=== PATIENT | female | born 1950 | race Caucasian/White ===

== ENCOUNTER 2019-07-09 14:43 | Outpatient (CLI) | payer OTHER, SELFPAY ==
[2019-07-09 15:31] LABS: Abs Immature Grans 0.03 k/cumm (0.0-0.09); Absolute Lymphocyte Count 0.88 k/cumm (1.2-3.4); Absolute Monocyte Count 1.21 k/cumm (0.11-0.7); HCT 39.2 % (36.0-46.0); HGB 12.7 g/dL (12.0-15.5); Immature Grans % 0.2 %; Lymphocytes % 7.2; Mean Corp. HGB Concentration 32.4 g/dL (32.0-36.0); Mean Corpuscular Hemoglobin 31.4 pg (27.0-33.0); Mean Platelet Volume 9.4 fL (8.0-11.0); Monocytes % 9.9; Neutrophils % 82.7; Platelet Count 264 x1000/uL (130-400); RBC 4.04 m/cumm (4.00-5.20); RBC Distribution Width 14.5 % (11.7-14.6); White Blood Cell Count 12.19 k/cumm (4.4-10.8)
[2019-07-09 15:34] LABS: Absolute Neutrophil Count 10.08 k/cumm (1.2-6.7)
[2019-07-09 15:52] LABS: ALT 21 U/L (14-59); AST 20 U/L (15-37); Albumin 3.6 g/dL (3.4-5.0); Alkaline Phosphatase 85 U/L (46-116); Anion Gap 6.3 mmol/L (3-11); BUN 32 mg/dL (7-18); Bilirubin, Total 0.3 mg/dL (0.2-1.0); CO2 27.7 mmol/L (21.0-32.0); Calcium 9.4 mg/dL (8.5-10.1); Chloride 107 mmol/L (98-107); Estimated GFR 54.81 (mL/min/1.73m2); Glucose 110 mg/dL (74-106); Potassium 4.7 mmol/L (3.5-5.1); Sodium 141 mmol/L (136-145); Total Protein 6.9 g/dL (6.4-8.2)
== END 2019-07-09 15:03 ==
PROVIDERS: PCP Registered Nurse; Visit Provider Internal Medicine
DX: C50.912 Malignant neoplasm of unspecified site of left female breast (principal); Z17.1 Estrogen receptor negative status [ER-]
CPT/HCPCS: 36415; 80053; 85025

== ENCOUNTER 2019-07-22 03:41 | Outpatient (RCR) | payer OTHER, SELFPAY ==
[2019-07-22 10:20] LABS: HCT 37.1 % (36.0-46.0); Mean Corp. HGB Concentration 32.3 g/dL (32.0-36.0); Mean Corpuscular Hemoglobin 31.7 pg (27.0-33.0); Mean Corpuscular Volume 97.9 fL (80-95); Mean Platelet Volume 9.4 fL (8.0-11.0); Platelet Count 389 x1000/uL (130-400); RBC 3.79 m/cumm (4.00-5.20); RBC Distribution Width 14.5 % (11.7-14.6); White Blood Cell Count 10.64 k/cumm (4.4-10.8)
[2019-07-22 10:45] LABS: Absolute Lymphocyte Count 1.17 k/cumm (1.2-3.4); Absolute Monocyte Count 1.38 k/cumm (0.11-0.7); Absolute Neutrophil Count 7.45 k/cumm (1.2-6.7); Diff Comment Manual Differential; RBC Morphology Normal
[2019-07-22 10:55] LABS: ALT 22 U/L (14-59); AST 14 U/L (15-37); Albumin 3.2 g/dL (3.4-5.0); Alkaline Phosphatase 109 U/L (46-116); Anion Gap 6.5 mmol/L (3-11); BUN 27 mg/dL (7-18); Bilirubin, Total 0.2 mg/dL (0.2-1.0); CO2 28.5 mmol/L (21.0-32.0); Chloride 107 mmol/L (98-107); Glucose 101 mg/dL (74-106); Potassium 4.3 mmol/L (3.5-5.1); Sodium 142 mmol/L (136-145); Total Protein 6.8 g/dL (6.4-8.2)
== END 2019-07-22 23:59 | disposition home or self-care (01) ==
LOC: INF 03:41
PROVIDERS: PCP Registered Nurse; Visit Provider Internal Medicine
DX: C50.912 Malignant neoplasm of unspecified site of left female breast (principal); Z17.1 Estrogen receptor negative status [ER-]
CPT/HCPCS: 36415; 80053; 85025

== ENCOUNTER 2019-08-12 00:54 | Outpatient (RCR) | payer OTHER, SELFPAY ==
[2019-07-29] MEDS: Normal Saline Flush 10 ML SYR IVP (10:50)
[2019-07-29 11:07] LABS: Abs Immature Grans 0.03 k/cumm (0.0-0.09); Absolute Basophil Count 0.11 k/cumm (0.0-0.2); Absolute Eosinophil Count 0.01 k/cumm (0.0-0.7); Absolute Lymphocyte Count 0.97 k/cumm (1.2-3.4); Absolute Monocyte Count 1.42 k/cumm (0.11-0.7); Absolute Neutrophil Count 4.42 k/cumm (1.2-6.7); Basophils % 1.6; Eosinophils % 0.1; HCT 38.2 % (36.0-46.0); HGB 12.4 g/dL (12.0-15.5); Immature Grans % 0.4 %; Lymphocytes % 13.9; Mean Corp. HGB Concentration 32.5 g/dL (32.0-36.0); Mean Corpuscular Hemoglobin 31.8 pg (27.0-33.0); Mean Corpuscular Volume 97.9 fL (80-95); Mean Platelet Volume 9.7 fL (8.0-11.0); Monocytes % 20.4; Neutrophils % 63.6; Platelet Count 577 x1000/uL (130-400); RBC Distribution Width 14.8 % (11.7-14.6); White Blood Cell Count 6.96 k/cumm (4.4-10.8)
[2019-07-29 11:27] LABS: ALT 23 U/L (14-59); AST 18 U/L (15-37); Albumin 3.4 g/dL (3.4-5.0); Alkaline Phosphatase 97 U/L (46-116); Anion Gap 7.9 mmol/L (3-11); BUN 25 mg/dL (7-18); Bilirubin, Total 0.3 mg/dL (0.2-1.0); CO2 27.1 mmol/L (21.0-32.0); CREATININE 0.87 mg/dL (0.55-1.02); Calcium 8.6 mg/dL (8.5-10.1); Chloride 107 mmol/L (98-107); Glucose 102 mg/dL (74-106); Potassium 4.4 mmol/L (3.5-5.1); Sodium 142 mmol/L (136-145); Total Protein 6.9 g/dL (6.4-8.2)
[2019-08-12] MEDS: Normal Saline Flush 10 ML SYR IVP (09:44)
[2019-08-12 09:49] LABS: Abs Immature Grans 1.31 k/cumm (0.0-0.09); HCT 35.9 % (36.0-46.0); HGB 11.9 g/dL (12.0-15.5); Mean Corp. HGB Concentration 33.1 g/dL (32.0-36.0); Mean Corpuscular Hemoglobin 32.4 pg (27.0-33.0); Mean Corpuscular Volume 97.8 fL (80-95); Mean Platelet Volume 9.4 fL (8.0-11.0); Platelet Count 251 x1000/uL (130-400); RBC 3.67 m/cumm (4.00-5.20); RBC Distribution Width 15.7 % (11.7-14.6); White Blood Cell Count 17.29 k/cumm (4.4-10.8)
[2019-08-12 10:04] LABS: ALT 26 U/L (14-59); AST 11 U/L (15-37); Albumin 3.2 g/dL (3.4-5.0); Alkaline Phosphatase 104 U/L (46-116); Anion Gap 7.7 mmol/L (3-11); BUN 32 mg/dL (7-18); Bilirubin, Total 0.2 mg/dL (0.2-1.0); CO2 26.3 mmol/L (21.0-32.0); Calcium 8.9 mg/dL (8.5-10.1); Chloride 108 mmol/L (98-107); Estimated GFR 54.81 (mL/min/1.73m2); Glucose 99 mg/dL (74-106); Potassium 4.1 mmol/L (3.5-5.1); Sodium 142 mmol/L (136-145); Total Protein 6.4 g/dL (6.4-8.2)
[2019-08-12 10:10] LABS: Absolute Eosinophil Count 0.35 k/cumm (0.0-0.7); Absolute Lymphocyte Count 0.86 k/cumm (1.2-3.4); Absolute Neutrophil Count 13.31 k/cumm (1.2-6.7)
[2019-08-12 10:11] LABS: Diff Comment Manual Differential; Nucleated RBC 2 /100WBC; Poikilocytes 1+; Polychromasia Present
== END 2019-08-21 23:59 | disposition home or self-care (01) ==
LOC: INF 00:54
PROVIDERS: PCP Registered Nurse; Visit Provider Internal Medicine
DX: C50.912 Malignant neoplasm of unspecified site of left female breast (principal); Z45.2 Encounter for adjustment and management of vascular access device; Z17.1 Estrogen receptor negative status [ER-]
CPT/HCPCS: 36591; 80053; 85025

== ENCOUNTER 2019-09-16 01:14 | Outpatient (RCR) | payer OTHER, SELFPAY ==
[2019-08-26] MEDS: Normal Saline Flush 10 ML SYR IVP (11:01)
[2019-08-26 11:12] LABS: Abs Immature Grans 0.42 k/cumm (0.0-0.09); Absolute Monocyte Count 0.56 k/cumm (0.11-0.7); HCT 29.3 % (36.0-46.0); HGB 9.6 g/dL (12.0-15.5); Mean Corp. HGB Concentration 32.8 g/dL (32.0-36.0); Mean Corpuscular Hemoglobin 31.9 pg (27.0-33.0); Mean Corpuscular Volume 97.3 fL (80-95); Platelet Count 282 x1000/uL (130-400); RBC 3.01 m/cumm (4.00-5.20); RBC Distribution Width 15.4 % (11.7-14.6); White Blood Cell Count 5.06 k/cumm (4.4-10.8)
[2019-08-26 11:23] LABS: ALT 47 U/L (14-59); AST 33 U/L (15-37); Albumin 2.5 g/dL (3.4-5.0); Alkaline Phosphatase 80 U/L (46-116); Anion Gap 6.4 mmol/L (3-11); BUN 13 mg/dL (7-18); Bilirubin, Total 0.3 mg/dL (0.2-1.0); CO2 27.6 mmol/L (21.0-32.0); CREATININE 0.97 mg/dL (0.55-1.02); Chloride 100 mmol/L (98-107); Estimated GFR 56.77 (mL/min/1.73m2); Glucose 97 mg/dL (74-106); Sodium 134 mmol/L (136-145); Total Protein 6.5 g/dL (6.4-8.2)
[2019-08-26 11:29] LABS: Absolute Eosinophil Count 0.05 k/cumm (0.0-0.7); Diff Comment Manual Differential
[2019-08-26 11:30] LABS: Hypochromasia 2+; Poikilocytes 1+; Polychromasia Present
[2019-09-16] MEDS: Normal Saline Flush 10 ML SYR IVP (08:52)
[2019-09-16 08:53] LABS: Abs Immature Grans 0.03 k/cumm (0.0-0.09); Absolute Basophil Count 0.05 k/cumm (0.0-0.2); Absolute Eosinophil Count 0.48 k/cumm (0.0-0.7); Absolute Lymphocyte Count 1.68 k/cumm (1.2-3.4); Absolute Monocyte Count 1.21 k/cumm (0.11-0.7); Absolute Neutrophil Count 4.55 k/cumm (1.2-6.7); Basophils % 0.6; HCT 33.6 % (36.0-46.0); HGB 10.6 g/dL (12.0-15.5); Immature Grans % 0.4 %; Mean Corp. HGB Concentration 31.5 g/dL (32.0-36.0); Mean Corpuscular Hemoglobin 31.5 pg (27.0-33.0); Mean Corpuscular Volume 99.7 fL (80-95); Mean Platelet Volume 8.9 fL (8.0-11.0); Monocytes % 15.1; Neutrophils % 56.9; Platelet Count 420 x1000/uL (130-400); RBC 3.37 m/cumm (4.00-5.20); RBC Distribution Width 18.4 % (11.7-14.6)
[2019-09-16 09:19] LABS: ALT 30 U/L (14-59); AST 21 U/L (15-37); Alkaline Phosphatase 79 U/L (46-116); Anion Gap 8.2 mmol/L (3-11); BUN 24 mg/dL (7-18); Bilirubin, Total 0.3 mg/dL (0.2-1.0); CO2 25.8 mmol/L (21.0-32.0); CREATININE 0.91 mg/dL (0.55-1.02); Chloride 107 mmol/L (98-107); Glucose 118 mg/dL (74-106); Potassium 3.6 mmol/L (3.5-5.1); Sodium 141 mmol/L (136-145); Total Protein 6.4 g/dL (6.4-8.2)
== END 2019-09-21 23:59 | disposition home or self-care (01) ==
LOC: INF 01:14
PROVIDERS: PCP Registered Nurse; Visit Provider Internal Medicine
DX: C50.912 Malignant neoplasm of unspecified site of left female breast (principal); Z17.1 Estrogen receptor negative status [ER-]; Z45.2 Encounter for adjustment and management of vascular access device
CPT/HCPCS: 36591; 80053; 85025

== ENCOUNTER 2019-10-21 02:06 | Outpatient (RCR) | payer OTHER, SELFPAY ==
[2019-09-23] MEDS: Normal Saline Flush 10 ML SYR IVP (10:11)
[2019-09-23 10:19] LABS: Abs Immature Grans 0.06 k/cumm (0.0-0.09); Absolute Basophil Count 0.05 k/cumm (0.0-0.2); Absolute Lymphocyte Count 1.45 k/cumm (1.2-3.4); Absolute Monocyte Count 0.66 k/cumm (0.11-0.7); Absolute Neutrophil Count 3.77 k/cumm (1.2-6.7); Basophils % 0.8; Eosinophils % 7.7; HCT 33.9 % (36.0-46.0); HGB 10.9 g/dL (12.0-15.5); Immature Grans % 0.9 %; Lymphocytes % 22.3; Mean Corp. HGB Concentration 32.2 g/dL (32.0-36.0); Mean Corpuscular Hemoglobin 32.2 pg (27.0-33.0); Mean Platelet Volume 9.5 fL (8.0-11.0); Monocytes % 10.2; Neutrophils % 58.1; Platelet Count 359 x1000/uL (130-400); RBC 3.39 m/cumm (4.00-5.20); RBC Distribution Width 18.3 % (11.7-14.6); White Blood Cell Count 6.49 k/cumm (4.4-10.8)
[2019-09-23 10:31] LABS: ALT 31 U/L (14-59); AST 23 U/L (15-37); Albumin 3.2 g/dL (3.4-5.0); Alkaline Phosphatase 80 U/L (46-116); BUN 19 mg/dL (7-18); Bilirubin, Total 0.3 mg/dL (0.2-1.0); CREATININE 0.94 mg/dL (0.55-1.02); Calcium 8.7 mg/dL (8.5-10.1); Chloride 106 mmol/L (98-107); Estimated GFR 58.87 (mL/min/1.73m2); Glucose 125 mg/dL (74-106); Potassium 3.8 mmol/L (3.5-5.1); Sodium 139 mmol/L (136-145); Total Protein 6.6 g/dL (6.4-8.2)
[2019-09-30] MEDS: Normal Saline Flush 10 ML SYR IVP (10:52)
[2019-09-30 11:06] LABS: Abs Immature Grans 0.03 k/cumm (0.0-0.09); Absolute Basophil Count 0.03 k/cumm (0.0-0.2); Absolute Lymphocyte Count 1.11 k/cumm (1.2-3.4); Absolute Monocyte Count 0.52 k/cumm (0.11-0.7); Absolute Neutrophil Count 3.21 k/cumm (1.2-6.7); Basophils % 0.6; Eosinophils % 3.9; HCT 33.4 % (36.0-46.0); HGB 10.7 g/dL (12.0-15.5); Immature Grans % 0.6 %; Lymphocytes % 21.8; Mean Corpuscular Hemoglobin 32.3 pg (27.0-33.0); Mean Corpuscular Volume 100.9 fL (80-95); Mean Platelet Volume 9.1 fL (8.0-11.0); Monocytes % 10.2; Neutrophils % 62.9; Platelet Count 368 x1000/uL (130-400); RBC 3.31 m/cumm (4.00-5.20); RBC Distribution Width 18.3 % (11.7-14.6)
[2019-09-30 11:16] LABS: ALT 32 U/L (14-59); AST 24 U/L (15-37); Albumin 3.4 g/dL (3.4-5.0); Alkaline Phosphatase 82 U/L (46-116); Anion Gap 10.7 mmol/L (3-11); BUN 21 mg/dL (7-18); Bilirubin, Total 0.3 mg/dL (0.2-1.0); CO2 24.3 mmol/L (21.0-32.0); CREATININE 0.87 mg/dL (0.55-1.02); Chloride 107 mmol/L (98-107); Glucose 104 mg/dL (74-106); Sodium 142 mmol/L (136-145); Total Protein 6.7 g/dL (6.4-8.2)
[2019-10-07] MEDS: Normal Saline Flush 10 ML SYR IVP (10:26)
[2019-10-07 10:36] LABS: Abs Immature Grans 0.04 k/cumm (0.0-0.09); Absolute Basophil Count 0.02 k/cumm (0.0-0.2); Absolute Eosinophil Count 0.07 k/cumm (0.0-0.7); Absolute Monocyte Count 0.71 k/cumm (0.11-0.7); Absolute Neutrophil Count 3.14 k/cumm (1.2-6.7); Basophils % 0.4; Eosinophils % 1.4; HGB 10.7 g/dL (12.0-15.5); Immature Grans % 0.8 %; Lymphocytes % 21.7; Mean Corp. HGB Concentration 31.5 g/dL (32.0-36.0); Mean Corpuscular Hemoglobin 32.2 pg (27.0-33.0); Mean Corpuscular Volume 102.4 fL (80-95); Mean Platelet Volume 9.4 fL (8.0-11.0); Neutrophils % 61.7; Platelet Count 349 x1000/uL (130-400); RBC 3.32 m/cumm (4.00-5.20); RBC Distribution Width 18.1 % (11.7-14.6); White Blood Cell Count 5.08 k/cumm (4.4-10.8)
[2019-10-07 10:46] LABS: ALT 35 U/L (14-59); AST 25 U/L (15-37); Albumin 3.4 g/dL (3.4-5.0); Alkaline Phosphatase 84 U/L (46-116); Anion Gap 8.8 mmol/L (3-11); BUN 19 mg/dL (7-18); Bilirubin, Total 0.3 mg/dL (0.2-1.0); CO2 26.2 mmol/L (21.0-32.0); CREATININE 0.93 mg/dL (0.55-1.02); Chloride 106 mmol/L (98-107); Glucose 105 mg/dL (74-106); Potassium 3.9 mmol/L (3.5-5.1); Sodium 141 mmol/L (136-145); Total Protein 6.6 g/dL (6.4-8.2)
[2019-10-14] MEDS: Normal Saline Flush 10 ML SYR IVP (10:29)
[2019-10-14 10:58] LABS: Abs Immature Grans 0.06 k/cumm (0.0-0.09); Absolute Basophil Count 0.03 k/cumm (0.0-0.2); Absolute Eosinophil Count 0.06 k/cumm (0.0-0.7); Absolute Lymphocyte Count 1.24 k/cumm (1.2-3.4); Absolute Monocyte Count 0.68 k/cumm (0.11-0.7); Absolute Neutrophil Count 3.32 k/cumm (1.2-6.7); Basophils % 0.6; Eosinophils % 1.1; HCT 35.4 % (36.0-46.0); HGB 11.2 g/dL (12.0-15.5); Immature Grans % 1.1 %; Mean Corp. HGB Concentration 31.6 g/dL (32.0-36.0); Mean Corpuscular Hemoglobin 32.7 pg (27.0-33.0); Mean Corpuscular Volume 103.2 fL (80-95); Mean Platelet Volume 10.2 fL (8.0-11.0); Monocytes % 12.6; Neutrophils % 61.6; Platelet Count 409 x1000/uL (130-400); RBC 3.43 m/cumm (4.00-5.20); RBC Distribution Width 17.9 % (11.7-14.6); White Blood Cell Count 5.39 k/cumm (4.4-10.8)
[2019-10-14 11:21] LABS: ALT 26 U/L (14-59); AST 19 U/L (15-37); Albumin 3.5 g/dL (3.4-5.0); Alkaline Phosphatase 83 U/L (46-116); Anion Gap 8.9 mmol/L (3-11); BUN 24 mg/dL (7-18); Bilirubin, Total 0.3 mg/dL (0.2-1.0); CO2 26.1 mmol/L (21.0-32.0); CREATININE 0.93 mg/dL (0.55-1.02); Calcium 9.1 mg/dL (8.5-10.1); Chloride 106 mmol/L (98-107); Glucose 110 mg/dL (74-106); Potassium 4.1 mmol/L (3.5-5.1); Sodium 141 mmol/L (136-145); Total Protein 6.8 g/dL (6.4-8.2)
[2019-10-21] MEDS: Normal Saline Flush 10 ML SYR IVP (10:10)
[2019-10-21 10:32] LABS: Abs Immature Grans 0.07 k/cumm (0.0-0.09); Absolute Basophil Count 0.03 k/cumm (0.0-0.2); Absolute Eosinophil Count 0.06 k/cumm (0.0-0.7); Absolute Lymphocyte Count 1.07 k/cumm (1.2-3.4); Absolute Monocyte Count 0.58 k/cumm (0.11-0.7); Basophils % 0.7; Eosinophils % 1.4; HCT 33.8 % (36.0-46.0); HGB 10.8 g/dL (12.0-15.5); Immature Grans % 1.6 %; Lymphocytes % 24.8; Mean Corpuscular Hemoglobin 33.2 pg (27.0-33.0); Mean Platelet Volume 9.6 fL (8.0-11.0); Monocytes % 13.5; Platelet Count 377 x1000/uL (130-400); RBC 3.25 m/cumm (4.00-5.20); RBC Distribution Width 17.6 % (11.7-14.6); White Blood Cell Count 4.31 k/cumm (4.4-10.8)
[2019-10-21 10:43] LABS: ALT 26 U/L (14-59); AST 18 U/L (15-37); Albumin 3.3 g/dL (3.4-5.0); Alkaline Phosphatase 81 U/L (46-116); Anion Gap 7.9 mmol/L (3-11); BUN 19 mg/dL (7-18); Bilirubin, Total 0.2 mg/dL (0.2-1.0); CO2 27.1 mmol/L (21.0-32.0); CREATININE 0.89 mg/dL (0.55-1.02); Calcium 9.1 mg/dL (8.5-10.1); Chloride 104 mmol/L (98-107); Glucose 100 mg/dL (74-106); Potassium 4.3 mmol/L (3.5-5.1); Sodium 139 mmol/L (136-145); Total Protein 6.6 g/dL (6.4-8.2)
== END 2019-10-21 23:59 | disposition home or self-care (01) ==
LOC: INF 02:06
PROVIDERS: PCP Registered Nurse; Visit Provider Internal Medicine
DX: C50.912 Malignant neoplasm of unspecified site of left female breast (principal); Z17.1 Estrogen receptor negative status [ER-]; Z45.2 Encounter for adjustment and management of vascular access device
CPT/HCPCS: 36591; 80053; 85025

== ENCOUNTER 2019-11-18 10:00 | Outpatient (RCR) | payer OTHER, SELFPAY ==
[2019-10-28] MEDS: Normal Saline Flush 10 ML SYR IVP (10:57)
[2019-10-28 11:14] LABS: Abs Immature Grans 0.11 k/cumm (0.0-0.09); Absolute Basophil Count 0.03 k/cumm (0.0-0.2); Absolute Eosinophil Count 0.05 k/cumm (0.0-0.7); Absolute Lymphocyte Count 1.37 k/cumm (1.2-3.4); Absolute Monocyte Count 0.79 k/cumm (0.11-0.7); Absolute Neutrophil Count 3.01 k/cumm (1.2-6.7); Basophils % 0.6; Eosinophils % 0.9; HCT 35.9 % (36.0-46.0); HGB 11.2 g/dL (12.0-15.5); Immature Grans % 2.1 %; Lymphocytes % 25.6; Mean Corp. HGB Concentration 31.2 g/dL (32.0-36.0); Mean Corpuscular Hemoglobin 32.5 pg (27.0-33.0); Mean Corpuscular Volume 104.1 fL (80-95); Mean Platelet Volume 9.7 fL (8.0-11.0); Monocytes % 14.7; Neutrophils % 56.1; Platelet Count 417 x1000/uL (130-400); RBC 3.45 m/cumm (4.00-5.20); RBC Distribution Width 17.7 % (11.7-14.6); White Blood Cell Count 5.36 k/cumm (4.4-10.8)
[2019-10-28 11:26] LABS: ALT 25 U/L (14-59); AST 17 U/L (15-37); Albumin 3.5 g/dL (3.4-5.0); Alkaline Phosphatase 83 U/L (46-116); Anion Gap 9.3 mmol/L (3-11); BUN 25 mg/dL (7-18); Bilirubin, Total 0.3 mg/dL (0.2-1.0); CO2 25.7 mmol/L (21.0-32.0); CREATININE 0.88 mg/dL (0.55-1.02); Calcium 9.4 mg/dL (8.5-10.1); Chloride 104 mmol/L (98-107); Glucose 108 mg/dL (74-106); Potassium 4.3 mmol/L (3.5-5.1); Sodium 139 mmol/L (136-145); Total Protein 6.7 g/dL (6.4-8.2)
[2019-11-04] MEDS: Normal Saline Flush 10 ML SYR IVP (10:36)
[2019-11-04 10:38] LABS: Abs Immature Grans 0.05 k/cumm (0.0-0.09); Absolute Basophil Count 0.02 k/cumm (0.0-0.2); Absolute Eosinophil Count 0.04 k/cumm (0.0-0.7); Absolute Lymphocyte Count 1.12 k/cumm (1.2-3.4); Absolute Monocyte Count 0.58 k/cumm (0.11-0.7); Absolute Neutrophil Count 2.76 k/cumm (1.2-6.7); Basophils % 0.4; Eosinophils % 0.9; HCT 35.3 % (36.0-46.0); HGB 11.1 g/dL (12.0-15.5); Immature Grans % 1.1 %; Lymphocytes % 24.5; Mean Corp. HGB Concentration 31.4 g/dL (32.0-36.0); Mean Corpuscular Hemoglobin 32.7 pg (27.0-33.0); Mean Corpuscular Volume 104.1 fL (80-95); Mean Platelet Volume 9.1 fL (8.0-11.0); Monocytes % 12.7; Neutrophils % 60.4; Platelet Count 372 x1000/uL (130-400); RBC 3.39 m/cumm (4.00-5.20); RBC Distribution Width 16.8 % (11.7-14.6); White Blood Cell Count 4.57 k/cumm (4.4-10.8)
[2019-11-04 10:51] LABS: ALT 29 U/L (14-59); AST 19 U/L (15-37); Albumin 3.3 g/dL (3.4-5.0); Alkaline Phosphatase 87 U/L (46-116); Anion Gap 8.8 mmol/L (3-11); BUN 26 mg/dL (7-18); Bilirubin, Total 0.2 mg/dL (0.2-1.0); CO2 25.2 mmol/L (21.0-32.0); CREATININE 0.91 mg/dL (0.55-1.02); Calcium 8.7 mg/dL (8.5-10.1); Chloride 107 mmol/L (98-107); Glucose 118 mg/dL (74-106); Sodium 141 mmol/L (136-145); Total Protein 6.6 g/dL (6.4-8.2)
[2019-11-11] MEDS: Normal Saline Flush 10 ML SYR IVP (08:35)
[2019-11-11 08:43] LABS: Abs Immature Grans 0.02 k/cumm (0.0-0.09); Absolute Basophil Count 0.03 k/cumm (0.0-0.2); Absolute Eosinophil Count 0.06 k/cumm (0.0-0.7); Absolute Lymphocyte Count 1.11 k/cumm (1.2-3.4); Absolute Monocyte Count 0.71 k/cumm (0.11-0.7); Absolute Neutrophil Count 2.97 k/cumm (1.2-6.7); Basophils % 0.6; Eosinophils % 1.2; HGB 10.9 g/dL (12.0-15.5); Immature Grans % 0.4 %; Lymphocytes % 22.7; Mean Corp. HGB Concentration 32.1 g/dL (32.0-36.0); Mean Corpuscular Hemoglobin 33.1 pg (27.0-33.0); Mean Corpuscular Volume 103.3 fL (80-95); Mean Platelet Volume 9.1 fL (8.0-11.0); Monocytes % 14.5; Neutrophils % 60.6; Platelet Count 354 x1000/uL (130-400); RBC 3.29 m/cumm (4.00-5.20); RBC Distribution Width 16.6 % (11.7-14.6)
[2019-11-11 09:22] LABS: ALT 32 U/L (14-59); AST 23 U/L (15-37); Albumin 3.4 g/dL (3.4-5.0); Alkaline Phosphatase 76 U/L (46-116); BUN 21 mg/dL (7-18); Bilirubin, Total 0.4 mg/dL (0.2-1.0); CREATININE 0.95 mg/dL (0.55-1.02); Calcium 9.1 mg/dL (8.5-10.1); Chloride 104 mmol/L (98-107); Estimated GFR 58.16 (mL/min/1.73m2); Folate 19.5 ng/mL (8.6-20.0); Glucose 102 mg/dL (74-106); Sodium 138 mmol/L (136-145); Total Protein 6.6 g/dL (6.4-8.2); Vitamin B12 804 pg/mL (193-986)
[2019-11-18] MEDS: Normal Saline Flush 10 ML SYR IVP (10:14)
[2019-11-18 10:18] LABS: HCT 35.2 % (36.0-46.0); HGB 11.2 g/dL (11.2-15.7); WBC 5.11 10^3/uL (4.4-10.8)
[2019-11-18 10:19] LABS: MCH 32.9 pg (27.0-33.0); MCHC 31.8 % (32.0-36.0); MCV 103.5 fL (80-95); MPV 8.9 fL (8.0-11.0); Neutrophils % 61.7 %; Platelet Count 318 10^3/uL (130-400); RDW 16.4 % (11.7-14.6)
[2019-11-18 10:20] LABS: Absolute Basophil Count 0.02 10^3/uL (0.0-0.2); Absolute Eosinophil Count 0.05 10^3/uL (0.0-0.7); Basophils % 0.4; Immature Grans % 0.8; Monocytes % 15.9
[2019-11-18 10:21] LABS: Abs Immature Grans 0.04 10^3/uL (0.0-0.06); Absolute Lymphocyte Count 1.03 10^3/uL (1.2-3.4); Absolute Monocyte Count 0.81 10^3/uL (0.1-0.8); Absolute Neutrophil Count 3.16 10^3/uL (1.2-6.7)
[2019-11-18 10:29] LABS: ALT 25 U/L (14-59); AST 17 U/L (15-37); Albumin 3.3 g/dL (3.4-5.0); Alkaline Phosphatase 75 U/L (46-116); Anion Gap 7.8 mmol/L (3-11); BUN 23 mg/dL (7-18); Bilirubin, Total 0.3 mg/dL (0.2-1.0); CO2 27.2 mmol/L (21.0-32.0); CREATININE 0.94 mg/dL (0.55-1.02); Calcium 8.9 mg/dL (8.5-10.1); Chloride 105 mmol/L (98-107); Estimated GFR 58.87 (mL/min/1.73m2); Glucose 114 mg/dL (74-106); Potassium 4.1 mmol/L (3.5-5.1); Sodium 140 mmol/L (136-145); Total Protein 6.6 g/dL (6.4-8.2)
== END 2019-11-21 23:59 | disposition home or self-care (01) ==
LOC: INF 10:00
PROVIDERS: PCP Registered Nurse; Visit Provider Internal Medicine
DX: C50.912 Malignant neoplasm of unspecified site of left female breast (principal); D64.9 Anemia, unspecified; G25.2 Other specified forms of tremor; Z45.2 Encounter for adjustment and management of vascular access device; Z17.1 Estrogen receptor negative status [ER-]
CPT/HCPCS: 36591; 80053; 82607; 82746; 85025

== ENCOUNTER 2020-10-19 07:26 | Outpatient (CLI) | payer OTHER, SELFPAY ==
[2020-10-19 10:23] LABS: Abs Immature Grans 0.02 10^3/uL (0.0-0.06); Absolute Basophil Count 0.03 10^3/uL (0.0-0.2); Absolute Eosinophil Count 0.17 10^3/uL (0.0-0.7); Absolute Lymphocyte Count 1.13 10^3/uL (1.2-3.4); Absolute Neutrophil Count 3.77 10^3/uL (1.2-6.7); Basophils % 0.5; Eosinophils % 2.9; HCT 39.8 % (36.0-46.0); HGB 12.9 g/dL (11.2-15.7); Immature Grans % 0.3; Lymphocytes % 19.4; MCH 31.9 pg (27.0-33.0); MCHC 32.4 % (32.0-36.0); MCV 98.5 fL (80-95); MPV 9.8 fL (8.0-11.0); Neutrophils % 64.9; Nucleated RBC 0 %; Platelet Count 233 10^3/uL (130-400); RBC 4.04 10^6/uL (3.93-5.22); RDW 14.3 % (11.7-14.6); RDW-SD 52.1 fL; WBC 5.82 10^3/uL (4.4-10.8)
[2020-10-19 10:52] LABS: ALT 22 U/L (14-59); AST 18 U/L (15-37); Albumin 3.6 g/dL (3.4-5.0); Alkaline Phosphatase 105 U/L (46-116); Anion Gap 8.5 mmol/L (3-11); BUN 25 mg/dL (7-18); Bilirubin, Total 0.4 mg/dL (0.2-1.0); CO2 26.5 mmol/L (21.0-32.0); CREATININE 1.1 mg/dL (0.55-1.02); Calcium 9.1 mg/dL (8.5-10.1); Chloride 108 mmol/L (98-107); Estimated GFR 48.96 (mL/min/1.73m2); Glucose 105 mg/dL (74-106); Potassium 3.9 mmol/L (3.5-5.1); Sodium 143 mmol/L (136-145); Total Protein 6.8 g/dL (6.4-8.2)
== END 2020-10-19 07:27 | disposition home or self-care (01) ==
PROVIDERS: PCP Registered Nurse; Visit Provider Internal Medicine
DX: C50.912 Malignant neoplasm of unspecified site of left female breast (principal)
CPT/HCPCS: 36415; 80053; 85025